=== PATIENT | male | born 1990 | race Caucasian/White ===

== ENCOUNTER 2019-04-11 16:11 | Emergency (ER) | payer OTHER | END 2019-04-11 17:46 | disposition home or self-care (01) | LOC: EDH 16:11 | DX: K59.00 Constipation, unspecified (principal) ==

== ENCOUNTER 2019-04-16 14:45 | Emergency (ER) | payer OTHER ==
[2019-04-16] MEDS ORDERED: BISACODYL 5 MG TABLET.DR PO ONE (15:08)
[2019-04-16] MEDS ORDERED: BISACODYL 10 MG SUPP.RECT RC ONE (15:08)
== END 2019-04-16 17:31 | disposition home or self-care (01) ==
LOC: EDH 14:45
DX: K59.00 Constipation, unspecified (principal)
CPT/HCPCS: 74018